=== PATIENT | male | born 1990 | race Caucasian/White ===

== ENCOUNTER 2017-02-24 09:38 | Day surgery (SDC) | payer BC ==
[~2017-02-24] VITALS: Ht 177.8 cm; Wt 148.8 kg
[2017-02-24 10:19] VITALS: BP 136/79; PULSE 63; TEMP 98.8
[2017-02-24] MEDS ORDERED: ZYRTEC 10MG10 MG PO (10:29)
[2017-02-24] MEDS ORDERED: BENICAR HCT 251 TAB PO (10:29)
[2017-02-24] MEDS ORDERED: SINGULAIR 110 MG/TAB PO (10:30)
[2017-02-24] MEDS ORDERED: DESYREL 50MG50 MG PO (10:30)
[2017-02-24] MEDS ORDERED: CELEXA40 MG PO (10:30)
[2017-02-24 15:45] VITALS: BP 133/78; PULSE 82; TEMP 98
[2017-02-24 16:00] VITALS: BP 133/81; PULSE 84
[2017-02-24] MEDS ORDERED: NORCO 325 MG-7.1 TAB PO (16:05)
[2017-02-24 16:15] VITALS: BP 128/74; PULSE 78
== END 2017-02-24 16:45 | disposition home or self-care (01) ==
LOC: SDCO 09:38
DX: M25.762 Osteophyte, left knee (principal); J45.909 Unspecified asthma, uncomplicated; F32.9 Major depressive disorder, single episode, unspecified; Z83.3 Family history of diabetes mellitus; Z81.1 Family history of alcohol abuse and dependence; F17.210 Nicotine dependence, cigarettes, uncomplicated
CPT/HCPCS: J0690; J1100; J2270; J2405; J2704; J2765; J3010; J7120

== ENCOUNTER → 2021-12-05 | Outpatient (CLI) | payer BC ==
[~2021-12-05] MED LIST: BENICAR HCT 251 TAB PO; CELEXA40 MG PO; DESYREL 50MG50 MG PO; NORCO 325 MG-7.1 TAB PO; SINGULAIR 110 MG/TAB PO; ZYRTEC 10MG10 MG PO
== END ==
LOC: COL.RAD 10:58
DX: R19.7 Diarrhea, unspecified (principal)
CPT/HCPCS: Q9967